=== PATIENT | female | born 1960 | race Caucasian/White ===

== ENCOUNTER 2016-08-14 16:26 | Emergency (ER) | payer OTHER ==
[2016-08-14 17:15] VITALS: BP 116/60; PULSE 64; TEMP 97.9; BMI 33.4
--- NOTE | 2016-08-14 17:20 | EDPRACDOC ---
ED Hip Problem HPI - General Information Chief Complaint: Fall Stated Complaint: SLIPPED & FELL X 2 LT HIP ,LT LEG & FOOT PAIN Time Seen by Provider: 08/14/16 17:11 Home Medications: Home Medications Fluoxetine HCl [Prozac] 40 mg PO DAILY 03/01/14 Hydroxyzine HCl 25 mg PO DAILY PRN 06/20/15 Trazodone HCl [Desyrel] 50 mg PO QHS PRN 06/20/15 BuPROPion (BID formulation) [Wellbutrin-Sr] 150 mg PO DAILY #30 tab.sr.12h 07/11 Albuterol Sulfate [Ventolin Hfa] 1 - 2 puff INH Q4H PRN #1 each 11/08/15 Nebulizer [Needs Home Nebulizer] 1 item NEB DIR 03/20/16 Albuterol Sulfate 1.25 mg NEB QID PRN 05/04/16 Fluticasone/Vilanterol [Breo Ellipta 100-25 Mcg INH] 1 each IH DAILY 05/04/16 Omeprazole [Prilosec] 20 mg PO DAILY 05/04/16 Ondansetron [Zofran Odt] 4 mg PO Q6H PRN #20 tab.rapdis 06/15/16 Oxycodone HCl/Acetaminophen [Percocet 5-325 mg Tablet] 1 each PO TID #20 tablet 06/15/16 Cyclobenzaprine HCl [Flexeril] 10 mg PO TID PRN #15 tablet 06/30/16 Hydrocodone Bit/Acetaminophen [Lortab 5/325] 1 tab PO Q4-6H PRN #15 tab Ibuprofen 800 mg PO TID PRN #30 tablet 06/30/16 Prednisone [Deltasone, Orasone] 20 mg PO DAILY #20 tab 06/30/16 Tramadol HCl [Ultram] 50 mg PO Q4-6H #30 tablet 07/14/16 Cyclobenzaprine HCl [Flexeril] 10 mg PO TID PRN #20 tablet 08/14/16 Ibuprofen Tablet [Motrin] 800 mg PO TID PRN #30 tab 08/14/16 Allergies/Adverse Reactions: Allergies Allergy/AdvReac Type Severity Reaction Status Date / Time No Known Allergies Allergy Verified 07/14/16 14:12 - History of Present Illness Onset: 1 WEEK HPI: PT STATES SHE SLIPPED ON ICE LAST WEEK AND FELL ONTO LEFT SIDE, STATES SLIPPED GETTING OUT OF BATHTUB LAST NIGHT AND FELL ONTO LEFT SIDE AGAIN, PT COMPLAINS OF PAIN IN LEFT HIP, LEFT KNEE AND LEFT FOOT. PT DENIES OTHER INJURY, HAS BEEN ABLE TO AMBULATE BUT WITH PAIN, USING OTC MEDS WITHOUT RELIEF. NO LOC. Hip Problem Location: Reports: Left, Lateral Mechanism: Reports: Blunt Trauma Circumstances: Reports: Fall Relevant History: Reports: None Tetanus Up To Date?: (unk) Pain Severity: Moderate Associated Signs & Symptoms: Reports: Knee Pain, Back Pain ED Past Medical History - History Reviewed Yes Nurses notes reviewed and agree except as marked - Patient Medical History Neurological History: Denies: Cerebrovascular Accident, Dementia Cardiac History: Reports: Hypercholesterolemia. Denies: Coronary Artery Disease , Atrial Fibrillation, Hypertension, Congestive Heart Failure, Heart Attack Respiratory History: Reports: Asthma, COPD, Cough, Pneumonia. Denies: Emphysema GI/ History: Reports: Renal Disease (CKD/CRI with baseline creatinine approximately 1.10.), Gastroesophageal Reflux Musculoskeletal History: Reports: Arthritis Psychological History: Reports: Depression, Anxiety. Denies: Substance Use Disorder Systemic History: Denies: Cancer, Diabetes, Hypothyroidism Surgical History: Reports: Cholecystectomy, Other (BTL) - Family Medical History Reports: Hypertension, Diabetes, Cancer, Cardiac Disorders. Denies: Stroke - Social Medical History Smoking Status: Former smoker Social History: Denies: Methadone Use, Substance Use Disorder EDM Review of Systems - Review of Systems Genitourinary: negative: Dysuria, Frequency Neurological: negative: Dizziness, Numbness, Weakness Musculoskeletal: Foot, Hip, Leg Integumentary: No Symptoms Reported - Physical Exam Constitutional: Alert (Awake), No apparent distress Oriented to: Time, Person, Place Last recorded Vital Signs: Last Vital Signs Temp 97.9 F 08/14/16 17:14 Pulse 64 08/14/16 17:14 Resp 16 08/14/16 17:14 BP 116/60 08/14/16 17:14 Pulse Ox 95 08/14/16 17:14 Oxygen Pulse Oxygen Saturation 95 O2 Device Room Air Oxygen Flow Rate Fraction of Inspired Oxygen ( FIO2) - HEENT Head: Normal ( normocephalic) - Integumentary Skin: Normal, Warm, Dry Lymphatics: Normal (no adenopathy) - Neurologic Memory Impaired: Normal Motor Function: Normal (Normal tone, Pulses 2+ No cyanosis or edema, FROM) Cranial Nerve: Normal (CN II-X11 intact sensation, strength 5/5) Cerebellar: Normal Mood Description: Normal Perception: Normal ED Hip Problem Physical Exam - Musculoskeletal Hip: Mild tenderness (LATERALLY). negative: Swelling, Limited ROM Hip Deformity: Normal Pelvis: Normal Thigh: Normal Back: Normal Distal Function/Circulation: Normal, Capillary Refill. negative: Motor Deficit , Pulse Deficit, Sensory Deficit - Differential Diagnosis Bursitis, Contusion, Pelvis fracture Decision Time to Discharge: 17:20 - Departure Disposition: Home Condition: Stable Final Diagnosis: Left hip pain, Accidental fall Instructions: Hip Pain (ED) Education/Counseling Given To: Patient Education/Counseling Given Regarding: Diagnosis, Treatment, Prognosis, Follow Up Referrals: Milan Delcid MD [Primary Care Provider] - One Week Prescriptions: Cyclobenzaprine HCl [Flexeril] 10 mg PO TID PRN #20 tablet PRN Reason: Muscle Spasms Ibuprofen Tablet [Motrin] 800 mg PO TID PRN #30 tab PRN Reason: Pain Additional Instructions: APPLY WARM COMPRESSES TO AREAS OF SORENESS 20 MINS AT A TIME 4 - 5 TIMES DAILY NEEDED FOR PAIN.
== END 2016-08-14 17:26 | disposition home or self-care (01) ==
LOC: EDMC 16:26
DX: M25.552 Pain in left hip (principal); W18.2XXA Fall in (into) shower or empty bathtub, initial encounter; Y93.89 Activity, other specified
CPT/HCPCS: 99282